=== PATIENT | female | born 1990 | race Caucasian/White ===

== ENCOUNTER 2016-08-14 14:03 | Inpatient (IN) | payer OTHER ==
[~2016-08-14] VITALS: Ht 157.4 cm; Wt 43.5 kg
[~2016-08-14 14:03] MED LIST: AMOXICILLIN500 MG PO; ANAPROX DS550 MG PO; BACTRIM DS 8001 TA1 PO; BUSPAR15 MG PO; CELEXA10 MG PO; CIPRO500 MG PO; COLACE100 MG PO; DAYPRO600 M1 PO; DICLOFENAC POTA50 MG PO; FLEXERIL10 MG PO; Feosol300 MG PO; HYDROCODONE BIT1 T11 PO; LEVAQUIN750 MG PO; MACROBID100 M1 PO; MEDROL DOSEPAK4 MG PO; MOTRIN800 MG PO; ROBAXIN750 MG PO; SEPTRA DS 800 M1 TAB PO; TRAMADOL HCL50 MG PO; ULTRAM50 MG PO; ZOFRAN ODT4 MG SL; ZYRTEC10 MG PO
[2016-08-14 14:23] VITALS: BP 115/69
[2016-08-14 14:51] LABS: HEMATOCRIT 36.3 % (37.0-47.0); HEMOGLOBIN 11.4 g/dl (12.0-16.0); MEAN CELL VOLUME 83.1 fl (81.0-99.0); MEAN CORPUSCULAR HGB 26.1 pg (27.0-31.0); MEAN CORPUSCULAR HGB CONC 31.4 g/dl (33.0-37.0); MEAN PLATELET VOLUME 9.9 fl (9.6-12.3); PLATELET COUNT AUTOMATED 323 10*3/uL (130-400); RED BLOOD COUNT 4.37 10*6/uL (4.10-5.10); RED CELL DISTRI WIDTH 14.8 % (0-14.5); WHITE BLOOD COUNT 7.6 10*3/uL (4.8-10.8)
[2016-08-14 15:11] LABS: ATYPICAL LYMPHS 1 % (0-0); EOSINOPHIL # 0.9 10*3/uL (0-0.4); EOSINOPHILS 12 % (1-4); LYMPHOCYTE # 1.7 10*3/uL (1.3-4.4); MONOCYTE # 0.2 10*3/uL (0.1-1.0); NEUTROPHIL # 4.9 10*3/uL (2.3-7.9); NEUTROPHILS 64 % (47-73); TOTAL CELLS COUNTED 100 #CELLS; TOXIC GRANULATION SLIGHT
[2016-08-14 15:12] LABS: PLATELET SUFFICIENCY NORMAL (NORMAL)
[2016-08-14 15:15] LABS: ALKALINE PHOSPHATASE 83 U/L (45-117); BILIRUBIN, TOTAL 0.2 mg/dl (0.2-1.0); BUN 14 mg/dl (7-24); CARBON DIOXIDE 25 mmol/L (21-32); CHLORIDE 107 mmol/L (98-107); EST GLOM FILT AFRICAN AMERICAN > 60 ml/min; GLUCOSE 88 mg/dL (65-99); POTASSIUM 3.9 mmol/L (3.5-5.1); SGOT/AST 18 IU/L (3-35); SGPT/ALT 20 U/L (12-78); SODIUM 143 mmol/L (136-145); TOTAL PROTEIN 6.9 gm/dL (6.4-8.2)
[2016-08-14 15:26] LABS: URINE AMPHETAMINES < 1000 (1000ng/ml); URINE BARBITURATES < 200 (200ng/ml); URINE COCAINE < 300 (300ng/ml)
[2016-08-14 15:56] LABS: BILIRUBIN NEGATIVE (NEGATIVE); BLOOD NEGATIVE (NEGATIVE); CLARITY SL CLOUDY (CLEAR); COLOR YELLOW (YELLOW); GLUCOSE NEGATIVE (NEGATIVE); KETONE NEGATIVE (NEGATIVE); LEUKO ESTERASE NEGATIVE (NEGATIVE); NITRITE NEGATIVE (NEGATIVE); PH 5.5 (5.0-9.0); PROTEIN NEGATIVE (NEGATIVE); SPECIFIC GRAVITY >= 1.030 (1.005-1.030); UROBILINOGEN 0.2 E.U./dl (0.2-1.0)
[2016-08-14 16:04] LABS: BACTERIA 2+; RBC 0-2 rbc/hpf (0-2); URINE REFLEX COMMENT YES (NO)
[2016-08-14 16:11] LABS: PROTHROMBIN TIME 10.6 SECONDS (9.0-12.4)
[2016-08-14 16:30] VITALS: BP 108/61
[2016-08-14 20:00] VITALS: BP 129/78
[2016-08-15] VITALS: BP 120/58
[2016-08-15 08:00] VITALS: BP 82/64
[2016-08-15 12:00] VITALS: BP 129/60
[2016-08-15 16:00] VITALS: BP 131/61
[2016-08-15 20:00] VITALS: BP 112/58
[2016-08-16] VITALS: BP 124/66
[2016-08-16 08:00] VITALS: BP 104/50
[2016-08-16 11:55] VITALS: BP 116/60
[2016-08-16] MEDS ORDERED: ATARAX,VISTARIL50 MG PO (13:49)
[2016-08-16] MEDS ORDERED: METHOCARBAMOL750 M1 PO (13:49)
[2016-08-16] MEDS ORDERED: CARBIDOPA/LEVOD1 TA1 PO (13:49)
[2016-08-16] MEDS ORDERED: DICYCLOMINE HCL20 MG PO (13:49)
[2016-08-16 16:00] VITALS: BP 119/59
[2016-08-16 20:00] VITALS: BP 125/55
[2016-08-17] VITALS: BP 130/50
[2016-08-17 08:00] VITALS: BP 126/63
[2016-08-17] MEDS ORDERED: VITAMIN B-11 TAB PO (10:28)
[2016-08-17] MEDS ORDERED: THERA TABS1 TAB PO (10:28)
[2016-08-17] MEDS ORDERED: NATURE'S BLEND F1 MG PO (10:28)
== END 2016-08-17 11:45 | disposition home or self-care (01) | DRG 897 ==
LOC: ED 14:03 → 4E 14:44 → EDHOLD 14:44 → 4E 16:07
PROVIDERS: Internal Medicine; Nurse Practitioner Family
DX: F11.23 Opioid dependence with withdrawal (principal); E46 Unspecified protein-calorie malnutrition; Z68.1 Body mass index [BMI] 19.9 or less, adult; F17.219 Nicotine dependence, cigarettes, with unspecified nicotine-induced disorders; D64.9 Anemia, unspecified; D72.810 Lymphocytopenia; Z98.890 Other specified postprocedural states; Z88.8 Allergy status to other drugs, medicaments and biological substances

== ENCOUNTER 2017-04-12 18:31 | Emergency (ER) | payer OTHER ==
[~2017-04-12] VITALS: Ht 157.4 cm; Wt 43.1 kg
[~2017-04-12 18:31] MED LIST changes: +ATARAX,VISTARIL50 MG PO; +CARBIDOPA/LEVOD1 TA1 PO; +DICYCLOMINE HCL20 MG PO; +METHOCARBAMOL750 M1 PO; +NATURE'S BLEND F1 MG PO; +THERA TABS1 TAB PO; +VITAMIN B-11 TAB PO
[2017-04-12 18:40] VITALS: BP 114/63
[2017-04-12] MEDS ORDERED: NORCO 5-325 TA1 EACH PO (20:13)
== END 2017-04-12 20:24 | disposition home or self-care (01) ==
LOC: ED 18:31
DX: S62.346A Nondisplaced fracture of base of fifth metacarpal bone, right hand, initial encounter for closed fracture (principal); F17.200 Nicotine dependence, unspecified, uncomplicated; Z88.1 Allergy status to other antibiotic agents; Z88.8 Allergy status to other drugs, medicaments and biological substances; Y04.0XXA Assault by unarmed brawl or fight, initial encounter; Y93.89 Activity, other specified; Y92.89 Other specified places as the place of occurrence of the external cause; Y99.8 Other external cause status

== ENCOUNTER → 2017-05-15 | Outpatient (CLI) | payer OTHER ==
[~2017-05-15] MED LIST changes: +NORCO 5-325 TA1 EACH PO
== END | disposition home or self-care (01) ==
LOC: ORTHO 02:51
DX: S62.346D Nondisplaced fracture of base of fifth metacarpal bone, right hand, subsequent encounter for fracture with routine healing (principal); X58.XXXD Exposure to other specified factors, subsequent encounter

== ENCOUNTER 2017-08-19 09:05 | Emergency (ER) | payer OTHER ==
[~2017-08-19] VITALS: Ht 157.4 cm; Wt 43.1 kg
[2017-08-19 09:16] VITALS: BP 129/71
[2017-08-19] MEDS ORDERED: TAMIFLU 75MG CA75 MG PO (10:17)
== END 2017-08-19 10:41 | disposition home or self-care (01) ==
LOC: ED 09:05
DX: J09.X2 Influenza due to identified novel influenza A virus with other respiratory manifestations (principal); F17.200 Nicotine dependence, unspecified, uncomplicated; Z88.5 Allergy status to narcotic agent; Z88.1 Allergy status to other antibiotic agents

== ENCOUNTER 2017-12-02 17:59 | Emergency (ER) | payer OTHER ==
[~2017-12-02] VITALS: Ht 157.4 cm; Wt 43.1 kg
[~2017-12-02 17:59] MED LIST changes: +TAMIFLU 75MG CA75 MG PO
[2017-12-02 18:02] VITALS: BP 107/71
[2017-12-02] MEDS ORDERED: CYCLOBENZAPRINE5 M3 PO (20:16)
[2017-12-02] MEDS ORDERED: MEDROL DOSEPAK4 MG PO (20:16)
[2017-12-02] MEDS ORDERED: Motrin,Rufen800 MG PO (20:17)
== END 2017-12-02 20:19 | disposition home or self-care (01) ==
LOC: ED 17:59
DX: M25.552 Pain in left hip (principal); Z98.890 Other specified postprocedural states; Z88.1 Allergy status to other antibiotic agents; Z88.5 Allergy status to narcotic agent; X50.1XXA Overexertion from prolonged static or awkward postures, initial encounter; Y93.89 Activity, other specified; Y92.89 Other specified places as the place of occurrence of the external cause; Y99.9 Unspecified external cause status

== ENCOUNTER 2019-06-11 09:37 | Emergency (ER) | payer OTHER ==
[~2019-06-11] VITALS: Ht 157.4 cm; Wt 46.3 kg
[~2019-06-11 09:37] MED LIST changes: +CYCLOBENZAPRINE5 M3 PO; +Motrin,Rufen800 MG PO
[2019-06-11 09:39] VITALS: BP 128/55
[2019-06-11] MEDS ORDERED: AVPAK AZITHROM250 MG PO (10:58)
[2019-06-11] MEDS ORDERED: PREDNISONE20 M1 PO (10:58)
[2019-06-11] MEDS ORDERED: PROVENTIL HFA6.7 GM INH (10:58)
== END 2019-06-11 11:03 | disposition home or self-care (01) ==
LOC: ED 09:37
DX: J18.1 Lobar pneumonia, unspecified organism (principal); F17.200 Nicotine dependence, unspecified, uncomplicated; Z88.8 Allergy status to other drugs, medicaments and biological substances; Z88.1 Allergy status to other antibiotic agents; Z79.899 Other long term (current) drug therapy

== ENCOUNTER → 2019-08-22 | Outpatient (CLI) | payer OTHER ==
[~2019-08-22] MED LIST changes: +AVPAK AZITHROM250 MG PO; +PREDNISONE20 M1 PO; +PROVENTIL HFA6.7 GM INH
== END | disposition home or self-care (01) ==
LOC: ORTHO 00:36
DX: M17.0 Bilateral primary osteoarthritis of knee (principal)

== ENCOUNTER 2020-02-08 19:13 | Emergency (ER) | payer OTHER ==
[~2020-02-08] VITALS: Ht 157.4 cm; Wt 43.1 kg
[2020-02-08 19:26] VITALS: BP 119/66
[2020-02-08 21:10] LABS: BASO % 0.4 % (0.0-1.0); EOS # 0.4 10*3/uL (0.0-0.4); EOS % 4.4 % (1.0-4.0); HEMATOCRIT 41.8 % (37.0-47.0); LYMPH # 1.8 10*3/uL (1.3-4.4); LYMPH % 18.5 % (27.0-41.0); MEAN CELL VOLUME 87.4 fl (81.0-99.0); MEAN CORPUSCULAR HGB CONC 32.1 g/dl (33.0-37.0); MONO # 0.5 10*3/uL (0.1-1.0); MONO % 5.2 % (3.0-9.0); NEUT % 71.3 % (47.0-73.0); PLATELET COUNT AUTOMATED 224 10*3/uL (130-400); RED BLOOD COUNT 4.78 10*6/uL (4.10-5.10); RED CELL DISTRI WIDTH 12.2 % (0-14.5); WHITE BLOOD COUNT 9.8 10*3/uL (4.8-10.8)
[2020-02-08 21:24] LABS: ALBUMIN 3.7 gm/dl (3.1-4.5); ALKALINE PHOSPHATASE 93 U/L (45-117); BUN 17 mg/dl (7-24); CHLORIDE 108 mmol/L (98-107); POTASSIUM 3.7 mmol/L (3.5-5.1); SGOT/AST 17 IU/L (3-35); SGPT/ALT 21 U/L (12-78); SODIUM 138 mmol/L (136-145); TOTAL PROTEIN 7.7 gm/dL (6.4-8.2)
[2020-02-08 21:30] LABS: BILIRUBIN NEGATIVE (NEGATIVE); BLOOD NEGATIVE (NEGATIVE); CLARITY CLEAR (CLEAR); COLOR YELLOW (YELLOW); GLUCOSE NEGATIVE (NEGATIVE); KETONE NEGATIVE (NEGATIVE); LEUKO ESTERASE NEGATIVE (NEGATIVE); NITRITE NEGATIVE (NEGATIVE); PH 6.5 (5.0-9.0); UROBILINOGEN 0.2 E.U./dl (0.2-1.0)
[2020-02-08 21:39] LABS: EPITHELIAL CELLS 31-40
[2020-02-08 21:40] LABS: BACTERIA 1+; WBC 0-2 wbc/hpf (0-5)
[2020-02-08] MEDS ORDERED: AUGMENTIN 500500 M1 PO (21:56)
== END 2020-02-08 22:13 | disposition home or self-care (01) ==
LOC: ED 19:13
PROVIDERS: Nurse Practitioner
DX: J32.9 Chronic sinusitis, unspecified (principal); N39.0 Urinary tract infection, site not specified; F17.200 Nicotine dependence, unspecified, uncomplicated; Z88.8 Allergy status to other drugs, medicaments and biological substances; Z88.1 Allergy status to other antibiotic agents

== ENCOUNTER 2020-04-08 14:47 | Emergency (ER) | payer OTHER ==
[~2020-04-08] VITALS: Ht 157.4 cm; Wt 43.1 kg
[~2020-04-08 14:47] MED LIST changes: +AUGMENTIN 500500 M1 PO
[2020-04-08 15:00] VITALS: BP 117/60
== END 2020-04-08 16:44 | disposition home or self-care (01) ==
LOC: ED 14:47
DX: M25.562 Pain in left knee (principal); M79.89 Other specified soft tissue disorders; Z88.8 Allergy status to other drugs, medicaments and biological substances; Z88.1 Allergy status to other antibiotic agents; Z79.899 Other long term (current) drug therapy; Z87.891 Personal history of nicotine dependence; Z79.2 Long term (current) use of antibiotics

== ENCOUNTER → 2020-04-16 | Outpatient (CLI) | payer OTHER ==
[2020-04-16 16:45] LABS: BODY FLUID WBC 4937 /uL
[2020-04-16 17:39] LABS: BASO % 0.4 % (0.0-1.0); EOS # 0.4 10*3/uL (0.0-0.4); EOS % 4.6 % (1.0-4.0); HEMATOCRIT 40.4 % (37.0-47.0); LYMPH # 2.4 10*3/uL (1.3-4.4); LYMPH % 31.9 % (27.0-41.0); MEAN CORPUSCULAR HGB 28.1 pg (27.0-31.0); MEAN CORPUSCULAR HGB CONC 31.9 g/dl (33.0-37.0); MEAN PLATELET VOLUME 10.7 fl (9.6-12.3); MONO # 0.4 10*3/uL (0.1-1.0); MONO % 4.9 % (3.0-9.0); NEUT # 4.4 10*3/uL (2.3-7.9); NEUT % 58.1 % (47.0-73.0); PLATELET COUNT AUTOMATED 275 10*3/uL (130-400); RED BLOOD COUNT 4.59 10*6/uL (4.10-5.10); RED CELL DISTRI WIDTH 12.3 % (0-14.5); WHITE BLOOD COUNT 7.5 10*3/uL (4.8-10.8)
[2020-04-16 19:58] LABS: BF LYMPHOCYTES 1 %; BF MONOCYTES 15 %; BF NEUTROPHILS 83 %
[2020-04-17 08:11] LABS: RHEUMATOID ARTHRITIS FACTOR <10.0 IU/mL (0.0-13.9)
[2020-04-17 12:06] LABS: HEP B CORE AB, IGM Negative (Negative); HEPATITIS B SURFACE AG Negative (Negative); HEPATITIS C VIRUS ANTIBODY <0.1 s/co (0.0-0.9)
[2020-04-17 15:06] LABS: ANTI-RNP ANTIBODIES <0.2 AI (0.0-0.9)
[2020-04-18 00:09] LABS: CCP ANTIBODIES IGG/IGA 4 units (0-19)
[2020-04-18 02:06] LABS: LUPUS DRVVT 31.9 sec (0.0-47.0); PTT-LA 35.3 sec (0.0-51.9)
[2020-04-18 03:08] LABS: LUPUS REFLEX INTERPRETATION Comment: (.)
[2020-04-18 10:09] LABS: ACID FAST SPEC PROCESSING Direct Inoculation (.)
== END | disposition home or self-care (01) ==
LOC: LAB 15:57
PROVIDERS: ATTEND Orthopaedic Surgery
DX: M25.562 Pain in left knee (principal); M25.462 Effusion, left knee

== ENCOUNTER → 2020-12-11 | Outpatient (CLI) | payer OTHER | END | disposition home or self-care (01) | LOC: LAB 19:33 | PROVIDERS: ATTEND Registered Nurse Critical Care Medicine | DX: F11.20 Opioid dependence, uncomplicated (principal) ==

== ENCOUNTER 2021-05-25 17:38 | Inpatient (IN) | payer OTHER ==
[~2021-05-25] VITALS: Ht 157.5 cm; Wt 45.4 kg
[2021-05-25 17:40] VITALS: BP 105/50
[2021-05-25 18:19] LABS: BASO % 0.2 % (0.0-1.0); EOS # 0.1 10*3/uL (0.0-0.4); EOS % 0.4 % (1.0-4.0); HEMATOCRIT 36.2 % (37.0-47.0); LYMPH # 0.9 10*3/uL (1.3-4.4); LYMPH % 5.5 % (27.0-41.0); MEAN CELL VOLUME 87.4 fl (81.0-99.0); MEAN CORPUSCULAR HGB 28.5 pg (27.0-31.0); MEAN CORPUSCULAR HGB CONC 32.6 g/dl (33.0-37.0); MEAN PLATELET VOLUME 9.3 fl (9.6-12.3); MONO # 0.8 10*3/uL (0.1-1.0); MONO % 4.9 % (3.0-9.0); NEUT # 13.7 10*3/uL (2.3-7.9); NEUT % 88.2 % (47.0-73.0); PLATELET COUNT AUTOMATED 298 10*3/uL (130-400); RED BLOOD COUNT 4.14 10*6/uL (4.10-5.10); WHITE BLOOD COUNT 15.6 10*3/uL (4.8-10.8)
[2021-05-25 18:36] LABS: ALBUMIN 3.2 gm/dl (3.1-4.5); ALKALINE PHOSPHATASE 121 U/L (45-117); BUN 17 mg/dl (7-24); CHLORIDE 104 mmol/L (98-107); CPK 55 U/L (26-192); CREATININE 0.65 mg/dL (0.55-1.02); POTASSIUM 3.1 mmol/L (3.5-5.1); SGOT/AST 16 IU/L (3-35); SGPT/ALT 33 U/L (12-78); SODIUM 136 mmol/L (136-145); TOTAL PROTEIN 7.8 gm/dL (6.4-8.2)
[2021-05-25 18:39] LABS: TROPONIN I < 0.015 ng/ml (<0.045)
[2021-05-25] MEDS ORDERED: SUBLOCADE300 MG/1.5 SQ (18:55)
[2021-05-25 19:55] VITALS: BP 100/53
[2021-05-25 20:27] LABS: BILIRUBIN 1+ (Negative); BLOOD 1+ (Negative); CLARITY Cloudy (Clear); COLOR Dark Yellow (Yellow); GLUCOSE Negative (Negative); KETONE 2+ (Negative); LEUKO ESTERASE 1+ (Negative); NITRITE Negative (Negative); PH 5.5 (4.5-8.0); SPECIFIC GRAVITY >= 1.030 (1.001-1.030)
[2021-05-25 20:49] LABS: BACTERIA 2+
[2021-05-25 20:50] LABS: RBC 0-2 rbc/hpf (0-2)
[2021-05-25 23:50] VITALS: BP 105/61
[2021-05-26 03:12] VITALS: BP 95/48
[2021-05-26 05:21] LABS: ALBUMIN 2.6 gm/dl (3.1-4.5); BUN 13 mg/dl (7-24); CHLORIDE 111 mmol/L (98-107); SODIUM 141 mmol/L (136-145)
[2021-05-26 05:25] LABS: ALKALINE PHOSPHATASE 128 U/L (45-117); CREATININE 0.48 mg/dL (0.55-1.02); SGOT/AST 30 IU/L (3-35); SGPT/ALT 42 U/L (12-78); TOTAL PROTEIN 6.7 gm/dL (6.4-8.2)
[2021-05-26 05:30] LABS: POTASSIUM 4.3 mmol/L (3.5-5.1)
[2021-05-26 05:55] LABS: BASO % 0.2 % (0.0-1.0); EOS % 0.1 % (1.0-4.0); LYMPH # 0.7 10*3/uL (1.3-4.4); LYMPH % 6.3 % (27.0-41.0); MEAN CELL VOLUME 89.7 fl (81.0-99.0); MEAN CORPUSCULAR HGB 28.2 pg (27.0-31.0); MEAN CORPUSCULAR HGB CONC 31.5 g/dl (33.0-37.0); MEAN PLATELET VOLUME 9.9 fl (9.6-12.3); MONO # 0.4 10*3/uL (0.1-1.0); MONO % 3.4 % (3.0-9.0); NEUT # 9.3 10*3/uL (2.3-7.9); NEUT % 88.4 % (47.0-73.0); PLATELET COUNT AUTOMATED 279 10*3/uL (130-400); RED BLOOD COUNT 3.79 10*6/uL (4.10-5.10); WHITE BLOOD COUNT 10.6 10*3/uL (4.8-10.8)
[2021-05-26 06:47] VITALS: BP 95/62
[2021-05-26 07:14] VITALS: BP 101/61
[2021-05-26 13:34] VITALS: BP 98/61
[2021-05-26 14:00] VITALS: BP 101/68
[2021-05-26 20:00] VITALS: BP 94/77
[2021-05-27] VITALS: BP 85/41
== END 2021-05-26 22:57 | disposition left against medical advice (07) | DRG 871 ==
LOC: ED 17:38 → EDHOLD 18:52 → 4E 05-26 13:26
PROVIDERS: Emergency Medicine; Internal Medicine; ADMIT Family Medicine; ATTEND Family Medicine
PROC: XW033E5 Introduction of Remdesivir Anti-infective into Peripheral Vein, Percutaneous Approach, New Technology Group 5 (ICD-10-PCS; principal; 2021-05-25)
DX: A41.9 Sepsis, unspecified organism (principal); J96.01 Acute respiratory failure with hypoxia; J18.9 Pneumonia, unspecified organism; Z20.822 Contact with and (suspected) exposure to COVID-19; D64.9 Anemia, unspecified; Z53.29 Procedure and treatment not carried out because of patient's decision for other reasons; E87.6 Hypokalemia; R73.9 Hyperglycemia, unspecified; F17.210 Nicotine dependence, cigarettes, uncomplicated; Z71.6 Tobacco abuse counseling; Z88.1 Allergy status to other antibiotic agents; Z88.0 Allergy status to penicillin; Z88.8 Allergy status to other drugs, medicaments and biological substances; Z79.899 Other long term (current) drug therapy

== ENCOUNTER 2022-10-10 19:22 | Emergency (ER) | payer OTHER ==
[~2022-10-10] VITALS: Ht 157.4 cm; Wt 40.8 kg
[2022-10-10 19:22] VITALS: BP 112/56
[~2022-10-10 19:22] MED LIST changes: +SUBLOCADE300 MG/1.5 SQ
[2022-10-10] MEDS ORDERED: STRATTERA25 MG PO (19:42)
[2022-10-10] MEDS ORDERED: CLINDAMYCIN HC300 MG PO (20:01)
== END 2022-10-10 20:02 | disposition home or self-care (01) ==
LOC: ED 19:22
DX: K02.9 Dental caries, unspecified (principal); Z88.0 Allergy status to penicillin; Z88.1 Allergy status to other antibiotic agents; Z88.8 Allergy status to other drugs, medicaments and biological substances; Z79.899 Other long term (current) drug therapy; Z87.891 Personal history of nicotine dependence

== ENCOUNTER → 2022-12-10 | Outpatient (CLI) | payer OTHER ==
[~2022-12-10] MED LIST changes: +CLINDAMYCIN HC300 MG PO; +STRATTERA25 MG PO
[2022-12-10 11:22] LABS: BASO % 0.6 % (0.0-1.0); EOS # 0.1 10*3/uL (0.0-0.4); EOS % 1.2 % (1.0-4.0); HEMATOCRIT 40.9 % (37.0-47.0); LYMPH % 18.6 % (27.0-41.0); MEAN CELL VOLUME 88.9 fl (81.0-99.0); MEAN CORPUSCULAR HGB 28.7 pg (27.0-31.0); MEAN CORPUSCULAR HGB CONC 32.3 g/dl (33.0-37.0); MEAN PLATELET VOLUME 9.8 fl (9.6-12.3); MONO # 0.2 10*3/uL (0.1-1.0); MONO % 3.8 % (3.0-9.0); NEUT # 3.9 10*3/uL (2.3-7.9); NEUT % 75.6 % (47.0-73.0); PLATELET COUNT AUTOMATED 229 10*3/uL (130-400); RED CELL DISTRI WIDTH 12.7 % (0-14.5); WHITE BLOOD COUNT 5.2 10*3/uL (4.8-10.8)
[2022-12-11 05:06] LABS: HBSAG Negative (Negative); HEP B CORE AB, IGM Negative (Negative); HEPATITIS C ANTIBODY Non Reactive (Non Reactive)
[2022-12-11 13:07] LABS: CCP ANTIBODIES IGG/IGA 2 units (0-19)
[2022-12-11 14:08] LABS: ANTI-RNP ANTIBODIES <0.2 AI (0.0-0.9)
[2022-12-12 02:06] LABS: PTT-LA 31.6 sec (0.0-43.5)
[2022-12-12 03:07] LABS: LUPUS REFLEX INTERPRETATION Comment: (.)
== END | disposition home or self-care (01) ==
LOC: LAB 10:39
PROVIDERS: ATTEND Orthopaedic Surgery
DX: R53.83 Other fatigue (principal); M25.562 Pain in left knee

== ENCOUNTER 2024-12-31 13:29 | Emergency (ER) | payer BC ==
[~2024-12-31] VITALS: Ht 157.4 cm; Wt 40.8 kg
[2024-12-31 13:48] VITALS: BP 110/72
[2024-12-31] MEDS ORDERED: Ketorolac Tromethamine 30 MG/ML VIAL IM ONE (14:15)
[2024-12-31] MEDS ORDERED: AVPAK AZITHROM250 M1 PO (15:17)
[2024-12-31] MEDS ORDERED: AZITHROMYCIN 250 MG TAB PO ONE (15:20)
== END 2024-12-31 17:38 | disposition home or self-care (01) ==
LOC: ED 13:29
DX: J18.9 Pneumonia, unspecified organism (principal); Z88.8 Allergy status to other drugs, medicaments and biological substances; Z88.0 Allergy status to penicillin; Z79.2 Long term (current) use of antibiotics; Z79.899 Other long term (current) drug therapy; Z87.891 Personal history of nicotine dependence; Z87.442 Personal history of urinary calculi